=== PATIENT | male | born 1965 | race Caucasian/White ===

== ENCOUNTER 2018-07-21 13:14 | Emergency (ER) | payer BC ==
[2018-07-21 13:32] VITALS: BP 136/101; PULSE 96; TEMP 98.6; BMI 27.1
--- NOTE | 2018-07-21 14:14 | PDOC ---
History of Present Illness - General Chief Complaint: Pain, Acute Stated Complaint: abd pain Time Seen by Provider: 07/21/18 13:51 History Source: Patient - History of Present Illness Timing/Duration: reports: other Quality: reports: severe Pain Radiation: reports: RLQ Past History - Past Medical History Allergies/Adverse Reactions: Allergies Allergy/AdvReac Type Severity Reaction Status Date / Time No Known Allergies Allergy Verified 07/21/18 13:28 Home Medications: Ambulatory Orders Gabapentin [Neurontin] 600 mg PO TID 07/21/18 Oxycodone HCl [Oxycontin] 30 mg PO TID 07/21/18 COPD: No - Immunization History Immunization Up to Date: Yes - Suicide/Smoking/Psychosocial Hx Smoking Status: No Smoking History: Never smoked Number of Cigarettes Smoked Daily: 0 Review of Systems - Review of Systems Constitutional: No: Chills, Fever ABD/GI: Yes: Nausea, Vomiting, Abdominal cramping. No: Diarrhea : Yes: Frequency. No: Dysuria, Discharge, Flank Pain, Testicular Swelling, Testicular Pain Musculoskeletal: No: Back Pain *Physical Exam - Vital Signs Last Vital Signs Temp Pulse Resp BP Pulse Ox 98.6 F 96 H 15 136/101 H 100 07/21/18 13:28 07/21/18 13:28 07/21/18 13:28 07/21/18 13:28 07/21/18 13:28 - Physical Exam General Appearance: Yes: Appropriately Dressed. No: Apparent Distress HEENT: positive: Normal Voice Neck: positive: Supple Respiratory/Chest: negative: Respiratory Distress Gastrointestinal/Abdominal: positive: Tender (to RLQ w/ guarding) Musculoskeletal: negative: CVA Tenderness Integumentary: positive: Dry, Warm Neurologic: positive: Fully Oriented, Alert, Normal Mood/Affect Moderate Sedation - Procedure Monitoring Vital Signs: Procedure Monitoring Vital Signs Temperature 98.6 F 07/21/18 13:28 Pulse Rate 96 H 07/21/18 13:28 Respiratory Rate 15 07/21/18 13:28 Blood Pressure 136/101 H 07/21/18 13:28 O2 Sat by Pulse Oximetry (%) 100 07/21/18 13:28 ED Treatment Course - LABORATORY CBC & Chemistry Diagram: 07/21/18 15:00 07/21/18 15:00 Medical Decision Making - Medical Decision Making 07/21/18 14:13 53 yo F, h/o spinal fusion, ambulates w/ cane, dx w/ shingles to R flank 2017 that was treated, but states RLQ pain near site of prior shingles lesion never resolved and in fact has been getting worse. Had several episodes of nausea/vomiting several days ago that resolved. No fever, chills or change in bowel movements. States he has not gone back to his doctor for follow-up since diagnosed with shingles last year. Patient endorses history of chronic urinary frequency has been worked up in the past with no specific diagnosis per patient. Feels that he is urinating even more freq x 1 week, going about "30 times a day" per pt. No dysuria otherwise See exam R flank shingles 2 months ago w/ persistent pain to site Possible post-herpetic neuralgia vs appy vs renal stone -pain control -labs -CT 07/21/18 16:08 07/21/18 17:[address] unremarkable. Patient discharged in stable condition to follow up with his PMD for further evaluation. Patient reports he has pain medication at home and will take as needed *DC/Admit/Observation/Transfer Diagnosis at time of Disposition: Abdominal pain Qualifiers: Abdominal location: right lower quadrant Qualified Code(s): R10.31 - Right lower quadrant pain - Discharge Dispostion Disposition: HOME Condition at time of disposition: Good - Referrals - Patient Instructions Additional Instructions: Your abdominal pain might represent post-herpetic neuralgia. Take home pain medication as needed. Your labs and CT were unremarkable. Please follow-up with your PMD for further evaluation - Post Discharge Activity
[2018-07-21] MEDS ORDERED: KETOROLAC TROMETHAMINE 30 MG/1 ML VIAL IVPUSH ONE (15:06)
[2018-07-21] MEDS ORDERED: KETOROLAC TROMETHAMINE 30 MG/1 ML VIAL ONE (15:20)
[2018-07-21 15:37] LABS: BASO % 0.6 % (0-2.0); EOS % 0.4 % (0-4.5); HEMATOCRIT 45.5 % (35.4-49); HEMOGLOBIN 15.4 GM/dL (11.7-16.9); LYMPH % 41.5 % (8-40); MCH 28.9 pg (25.7-33.7); MCHC 33.8 g/dl (32.0-35.9); MEAN CELL VOLUME 85.5 fl (80-96); MEAN PLT VOLUME 7.4 fl (7.5-11.1); MONO % 8.4 % (3.8-10.2); NEUT % 49.1 % (42.8-82.8); PLATELET COUNT 322 K/MM3 (134-434); RBC 5.32 M/mm3 (4.00-5.60); RDW 13.8 % (11.9-15.9); WHITE BLOOD COUNT 5.7 K/mm3 (4.0-10.0)
[2018-07-21 15:55] LABS: ALBUMIN 4.7 g/dl (3.4-5.0); ALK PHOS 77 U/L (45-117); ANION GAP 8 MMOL/L (8-16); BILIRUBIN,TOTAL 1.1 mg/dL (0.2-1); BLOOD UREA NITROGEN 16 mg/dL (7-18); CHLORIDE 97 mmol/L (98-107); CO2 32 mmol/L (21-32); CREATININE 1.2 mg/dL (0.55-1.3); GLUCOSE,RANDOM 87 mg/dL (74-106); POTASSIUM 4.6 mmol/L (3.5-5.1); SGOT/AST 19 U/L (15-37); SGPT/ALT 29 U/L (13-61); SODIUM 137 mmol/L (136-145); TOT PROT 8.9 g/dl (6.4-8.2)
[2018-07-21 17:03] LABS: URINE APPEARANCE CLEAR; URINE BILIRUBIN NEGATIVE (<2.0 mg/dL); URINE COLOR LTYELLOW; URINE GLUCOSE (UA) NEGATIVE (NEGATIVE); URINE KETONE NEGATIVE (NEGATIVE); URINE LEUK ESTERASE NEGATIVE (NEGATIVE); URINE NITRITE NEGATIVE (NEGATIVE); URINE PROTEIN NEGATIVE (NEGATIVE); URINE UROBILINOGEN NEGATIVE mg/dL (0.2-1.0)
== END 2018-07-21 18:38 | disposition home or self-care (01) ==
LOC: JER 13:14
PROC: 3E0333Z Introduction of Anti-inflammatory into Peripheral Vein, Percutaneous Approach (ICD-10-PCS; principal; 2018-07-21)
DX: R10.30 Lower abdominal pain, unspecified (principal); Z86.69 Personal history of other diseases of the nervous system and sense organs
CPT/HCPCS: 36415; 74177-TC; 80053; 81003; 85025; 99282-25

== ENCOUNTER 2018-08-17 16:32 | Emergency (ER) | payer BC ==
--- NOTE | 2018-08-17 16:37 | PDOC ---
Rapid Medical Evaluation Chief Complaint: Pain Time Seen by Provider: 08/17/18 16:37 Medical Evaluation: Allergies Allergy/AdvReac Type Severity Reaction Status Date / Time No Known Allergies Allergy Verified 08/17/18 16:37 08/17/18 16:37 I performed a brief in-person evaluation of this patient. Chief complaint: Constipation, small BM Friday. On chronic opiates s/p back surgery. Pertinent physical exam findings: Moderate distention, bowel sounds hypoactive, RLQ tenderness I have ordered the following: Basic labs, AXR. Patient will proceed to the ED for further evaluation. 08/17/18 16:38 Discharge Disposition - Diagnosis Constipation - Referrals - Patient Instructions - Post Discharge Activity
[2018-08-17 16:41] VITALS: TEMP 98.2; BMI 25.8
[2018-08-17 16:58] LABS: BASO % 0.8 % (0-2.0); EOS % 0.4 % (0-4.5); HEMATOCRIT 45.6 % (35.4-49); HEMOGLOBIN 15.7 GM/dL (11.7-16.9); LYMPH % 34.4 % (8-40); MCH 29.6 pg (25.7-33.7); MCHC 34.5 g/dl (32.0-35.9); MEAN CELL VOLUME 85.6 fl (80-96); MEAN PLT VOLUME 7.3 fl (7.5-11.1); MONO % 8.2 % (3.8-10.2); NEUT % 56.2 % (42.8-82.8); PLATELET COUNT 281 K/MM3 (134-434); RBC 5.32 M/mm3 (4.00-5.60); RDW 13.2 % (11.9-15.9); WHITE BLOOD COUNT 5.7 K/mm3 (4.0-10.0)
--- NOTE | 2018-08-17 17:01 | PDOC ---
History of Present Illness - General History Source: Patient <Joe Bond - Last Filed: 08/17/18 17:58> <Brianda Roper - Last Filed: 08/18/18 07:44> - General Chief Complaint: Pain Stated Complaint: ABD PAINS Time Seen by Provider: 08/17/18 16:37 Past History - Past Medical History COPD: No - Immunization History Immunization Up to Date: Yes - Suicide/Smoking/Psychosocial Hx Smoking Status: No Smoking History: Never smoked Number of Cigarettes Smoked Daily: 0 <Joe Bond - Last Filed: 08/17/18 17:58> <Brianda Roper - Last Filed: 08/18/18 07:44> - Past Medical History Allergies/Adverse Reactions: Allergies Allergy/AdvReac Type Severity Reaction Status Date / Time No Known Allergies Allergy Verified 08/17/18 16:37 Home Medications: Ambulatory Orders Gabapentin [Neurontin] 300 mg PO TID 07/21/18 Oxycodone HCl [Oxycontin] 30 mg PO TID 07/21/18 Review of Systems - Review of Systems Constitutional: No: Fever ABD/GI: Yes: Constipated. No: Blood Streaked Bowels, Diarrhea, Nausea, Rectal Bleeding, Vomiting, Abdominal cramping : No: Dysuria <Joe Bond Last Filed: 08/17/18 17:58> *Physical Exam - Vital Signs Last Vital Signs Temp Pulse Resp BP Pulse Ox 98.2 F 115 H 18 136/95 97 08/17/18 16:37 08/17/18 16:37 08/17/18 16:37 08/17/18 16:37 08/17/18 16:37 - Physical Exam General Appearance: Yes: Appropriately Dressed. No: Apparent Distress HEENT: positive: Normal Voice Neck: positive: Supple Respiratory/Chest: negative: Respiratory Distress Gastrointestinal/Abdominal: positive: Soft. negative: Tender Integumentary: positive: Dry, Warm Neurologic: positive: Fully Oriented, Alert, Normal Mood/Affect <Joe Bond Last Filed: 08/17/18 17:58> - Vital Signs Last Vital Signs Temp Pulse Resp BP Pulse Ox 98.2 F 92 H 18 131/94 97 08/17/18 17:53 08/17/18 17:53 08/17/18 17:53 08/17/18 17:53 08/17/18 17:53 <Brianda Roper - Last Filed: 08/18/18 07:44> Moderate Sedation - Procedure Monitoring Vital Signs: Procedure Monitoring Vital Signs Temperature 98.2 F 08/17/18 16:37 Pulse Rate 115 H 08/17/18 16:37 Respiratory Rate 18 08/17/18 16:37 Blood Pressure 136/95 08/17/18 16:37 O2 Sat by Pulse Oximetry (%) 97 08/17/18 16:37 <Joe Bond - Last Filed: 08/17/18 17:58> - Procedure Monitoring Vital Signs: Procedure Monitoring Vital Signs Temperature 98.2 F 08/17/18 17:53 Pulse Rate 92 H 08/17/18 17:53 Respiratory Rate 18 08/17/18 17:53 Blood Pressure 131/94 08/17/18 17:53 O2 Sat by Pulse Oximetry (%) 97 08/17/18 17:53 <Brianda Roper - Last Filed: 08/18/18 07:44> ED Treatment Course - LABORATORY CBC & Chemistry Diagram: 08/17/18 16:50 08/17/18 16:50 <Joe Bond - Last Filed: 08/17/18 17:58> - LABORATORY CBC & Chemistry Diagram: 08/17/18 16:50 08/17/18 16:50 - ADDITIONAL ORDERS Additional order review: 08/17/18 16:50 RBC 5.32 MCV 85.6 MCHC 34.5 RDW 13.2 MPV 7.3 L Neutrophils % 56.2 Lymphocytes % 34.4 Monocytes % 8.2 Eosinophils % 0.4 Basophils % 0.8 <Brianda Roper - Last Filed: 08/18/18 07:44> Medical Decision Making - Medical Decision Making 08/17/18 16:59 53 yo M, h/o chronic LBP, s/p spinal fusion, ambulates w/ cane, on oxycodone, chronic R flank/RLQ pain s/p episode of shingles near site 05/17, currently on famiciclovir though no rash currently, here w/ constipation x 1 week that patient admits is getting better with [id number] medication and Linzess given to him by his doctor. Last bowel movement was last night. No bright blood per rectum, rectal pain, nausea, vomiting, fever or chills. No abd surgery in past. No recent scope See exam Constipation Improved w/ OTC meds and linzess Take oxycodone for chronic back pain Tachy to 115 but well amada w/ benign abd -labs and abd XR ordered from triage 08/17/18 17:44 Labs unremarkable and XR read as no e/o SBO. Will dc to continue bowel regimen at home and f/u with his PMD <Joe Bond - Last Filed: 08/17/18 17:58> *DC/Admit/Observation/Transfer <Joe Bond - Last Filed: 08/17/18 17:58> - Attestations Physician Attestion: I reviewed the case with the mid-level practitioner and agree with the mid- level practitioner's assessment, diagnosis and disposition. <Brianda Roper - Last Filed: 08/18/18 07:44> Diagnosis at time of Disposition: Constipation Qualifiers: Constipation type: unspecified constipation type Qualified Code(s): K59.00 - Constipation, unspecified - Discharge Dispostion Disposition: HOME Condition at time of disposition: Good - Patient Instructions Printed Discharge Instructions: Constipation Additional Instructions: Your labs are normal here and your x-ray showed no sign of obstruction. Please continue your bowel regimen at home and follow up with your PMD
[2018-08-17 17:20] LABS: ALBUMIN 4.3 g/dl (3.4-5.0); ALK PHOS 73 U/L (45-117); ANION GAP 7 MMOL/L (8-16); BILIRUBIN,TOTAL 0.6 mg/dL (0.2-1); BLOOD UREA NITROGEN 14 mg/dL (7-18); CALCIUM 9.4 mg/dL (8.5-10.1); CHLORIDE 100 mmol/L (98-107); CO2 31 mmol/L (21-32); CREATININE 1.2 mg/dL (0.55-1.3); GLUCOSE,RANDOM 105 mg/dL (74-106); POTASSIUM 4.6 mmol/L (3.5-5.1); SGOT/AST 13 U/L (15-37); SGPT/ALT 34 U/L (13-61); SODIUM 138 mmol/L (136-145); TOT PROT 8.2 g/dl (6.4-8.2)
[2018-08-17 17:27] LABS: URINE APPEARANCE CLEAR; URINE BILIRUBIN NEGATIVE (<2.0 mg/dL); URINE COLOR YELLOW; URINE GLUCOSE (UA) NEGATIVE (NEGATIVE); URINE KETONE NEGATIVE (NEGATIVE); URINE LEUK ESTERASE NEGATIVE (NEGATIVE); URINE NITRITE NEGATIVE (NEGATIVE); URINE PROTEIN NEGATIVE (NEGATIVE); URINE UROBILINOGEN NEGATIVE mg/dL (0.2-1.0)
[2018-08-17 17:54] VITALS: BP 131/94; PULSE 92
== END 2018-08-17 17:55 | disposition home or self-care (01) ==
LOC: JER 16:32
DX: K59.03 Drug induced constipation (principal); T40.2X5A Adverse effect of other opioids, initial encounter; Y92.018 Other place in single-family (private) house as the place of occurrence of the external cause; M54.5 Low back pain; G89.29 Other chronic pain
CPT/HCPCS: 36415; 74019-TC-FY; 80053; 81003; 85025; 99281-25

== ENCOUNTER 2021-07-13 15:31 | Emergency (ER) | payer BC ==
[2021-07-13 15:58] VITALS: BP 149/84; PULSE 74; TEMP 98.1; BMI 24.2
[2021-07-13] MEDS ORDERED: SODIUM CHLORIDE 0.9% 500 ML INFUS.BAG IV ONE (17:35)
[2021-07-13] MEDS ORDERED: KETOROLAC TROMETHAMINE 15 MG/ML VIAL IVPUSH ONE (17:38)
[2021-07-13] MEDS ORDERED: KETOROLAC TROMETHAMINE 15 MG/ML VIAL ONE (18:09)
[2021-07-13 18:10] LABS: BASO % 0.7 % (0-2.0); EOS % 0.4 % (0-4.5); HEMATOCRIT 44.4 % (35.4-49); HEMOGLOBIN 15.2 GM/dL (11.7-16.9); LYMPH % 37.5 % (8-40); MCHC 34.2 g/dl (32.0-35.9); MEAN CELL VOLUME 84.9 fl (80-96); MEAN PLT VOLUME 7.2 fl (7.5-11.1); MONO % 9.7 % (3.8-10.2); NEUT % 51.7 % (42.8-82.8); PLATELET COUNT 321 10^3/uL (134-434); RBC 5.23 M/mm3 (4.00-5.60)
[2021-07-13 18:38] LABS: CALCIUM 9.8 mg/dL (8.5-10.1)
[2021-07-13 18:39] LABS: ALBUMIN 4.2 g/dl (3.4-5.0); BLOOD UREA NITROGEN 22.9 mg/dL (7-18)
[2021-07-13 18:41] LABS: CREATININE 1.4 mg/dL (0.55-1.3)
[2021-07-13 18:43] LABS: BILIRUBIN,TOTAL 0.5 mg/dL (0.2-1); TOT PROT 8.1 g/dl (6.4-8.2)
[2021-07-13] MEDS ORDERED: morphine CARPU-JECT 4 MG/1 ML DISP.SYRIN IVPUSH ONE (19:02)
[2021-07-13] MEDS ORDERED: morphine SULFATE 4 MG/ML VIAL ONE (19:28)
== END 2021-07-13 22:32 | disposition home or self-care (01) ==
LOC: JER 15:31
PROC: 3E033NZ Introduction of Analgesics, Hypnotics, Sedatives into Peripheral Vein, Percutaneous Approach (ICD-10-PCS; principal; 2021-07-13)
PROC: 3E033GC Introduction of Other Therapeutic Substance into Peripheral Vein, Percutaneous Approach (ICD-10-PCS; 2021-07-13)
DX: R10.9 Unspecified abdominal pain (principal)
CPT/HCPCS: 36415; 74177-TC; 80053; 83690; 85025; 99285-25; Q9967

== ENCOUNTER 2022-05-02 16:16 | Inpatient (IN) | payer BC ==
[2022-05-02] MEDS ORDERED: SODIUM CHLORIDE 0.9% 500 ML INFUS.BAG IV ONE (17:56)
[2022-05-02] MEDS ORDERED: morphine SULFATE 4 MG/ML VIAL IVPUSH ONE (17:56)
[2022-05-02] MEDS ORDERED: morphine SULFATE 4 MG/ML VIAL ONE (18:34)
[2022-05-02 19:02] LABS: BASO % 0.4 % (0-2.0); EOS % 0.4 % (0-4.5); HEMATOCRIT 45.1 % (35.4-49); HEMOGLOBIN 15.6 GM/dL (11.7-16.9); LYMPH % 26.7 % (8-40); MCH 30.3 pg (25.7-33.7); MCHC 34.5 g/dl (32.0-35.9); MEAN CELL VOLUME 87.9 fl (80-96); MEAN PLT VOLUME 7.4 fl (7.5-11.1); MONO % 8.2 % (3.8-10.2); NEUT % 64.3 % (42.8-82.8); PLATELET COUNT 275 10^3/uL (134-434); RBC 5.13 M/mm3 (4.00-5.60); WHITE BLOOD COUNT 7.3 K/mm3 (4.0-10.0)
[2022-05-02 19:09] LABS: INR 1.05 (0.83-1.09); PROTHROMBIN TIME (PATIENT) 12.1 SEC (9.7-13.0)
[2022-05-02 19:12] LABS: ACTIVATED PTT 27.1 SECONDS (25.2-36.5)
[2022-05-02 19:13] LABS: ALBUMIN 4.2 g/dl (3.4-5.0); BLOOD UREA NITROGEN 18.8 mg/dL (7-18); CALCIUM 9.8 mg/dL (8.5-10.1)
[2022-05-02 19:17] LABS: BILIRUBIN,TOTAL 0.5 mg/dL (0.2-1); CREATININE 1.1 mg/dL (0.55-1.3); TOT PROT 7.7 g/dl (6.4-8.2)
[2022-05-02] MEDS ORDERED: PIPERACILLIN/TAZOB 3.375 GM 3.375 GM in DEXTROSE 5%-WATER - 50 ML IVPB ONE (21:59)
[2022-05-02] MEDS ORDERED: FAMOTIDINE 20 MG/50 ML IVPB 20 MG/50 ML MG IVPB ONE ×2 (22:22→22:43)
[2022-05-02] MEDS ORDERED: MAG HYDROX/AL HYDROX/SIMETH -MYLANTA- ORAL SUSPENSION PO ONE (22:22)
[2022-05-02] MEDS ORDERED: PIPERACILLIN/TAZOB 3.375 GM 3.375 GM/50 ML BAG IVPB ONE (22:30)
[2022-05-02] MEDS ORDERED: FAMOTIDINE 20 MG TABLET ONE (22:30)
[2022-05-02] MEDS ORDERED: MAG HYDROX/AL HYDROX/SIMETH 30 ML UNIT-DOSE CUP ONE (22:30)
[2022-05-02] MEDS ORDERED: DOCUSATE SODIUM 100 MG CAPSULE (FP) PO PRN (23:10)
[2022-05-02] MEDS ORDERED: ACETAMINOPHEN 1000 MG/100 ML BAG IVPB PRN (23:14)
[2022-05-02] MEDS ORDERED: ONDANSETRON 4 MG/2 ML VIAL IVPUSH PRN (23:15)
[2022-05-03 02:47] VITALS: BMI 23.9
[2022-05-03] MEDS ORDERED: PIPERACILLIN/TAZOB 3.375 GM 3.375 GM/50 ML BAG IVPB SCH (08:00)
[2022-05-03] MEDS ORDERED: WATER IVPB SCH (09:16)
[2022-05-03] MEDS ORDERED: DEXTROSE 5% IVPB SCH (09:16)
[2022-05-03] MEDS ORDERED: TAZOB IVPB SCH (09:16)
[2022-05-03] MEDS ORDERED: PIPERACILLIN IVPB SCH (09:16)
[2022-05-03] MEDS ORDERED: PIPERACILLIN/TAZOB 3.375 GM 3.375 GM in DEXTROSE 5%-WATER - 50 ML IVPB SCH (09:29)
[2022-05-03] MEDS: ENOXAPARIN NA (PORCINE) 40 MG/0.4 ML DISP.SYRIN SQ SCH ×2 (10:02→10:24)
[2022-05-03] MEDS: PANTOPRAZOLE 20 MG TABLET PO SCH (10:02)
[2022-05-03 11:39] LABS: BASO % 0.6 % (0-2.0); EOS % 0.2 % (0-4.5); HEMATOCRIT 42.6 % (35.4-49); HEMOGLOBIN 14.4 GM/dL (11.7-16.9); LYMPH % 19.3 % (8-40); MCH 29.7 pg (25.7-33.7); MCHC 33.8 g/dl (32.0-35.9); MEAN CELL VOLUME 87.8 fl (80-96); MEAN PLT VOLUME 8.1 fl (7.5-11.1); MONO % 9.1 % (3.8-10.2); NEUT % 70.8 % (42.8-82.8); PLATELET COUNT 243 10^3/uL (134-434); RBC 4.86 M/mm3 (4.00-5.60); RDW 12.8 % (11.9-15.9); WHITE BLOOD COUNT 6.5 K/mm3 (4.0-10.0)
[2022-05-03 11:56] LABS: CALCIUM 8.8 mg/dL (8.5-10.1)
[2022-05-03 11:57] LABS: BLOOD UREA NITROGEN 14.5 mg/dL (7-18); MAGNESIUM 2.3 mg/dL (1.8-2.4)
[2022-05-03 12:01] LABS: PHOSPHOROUS 3.1 mg/dL (2.5-4.9)
[2022-05-03] MEDS ORDERED: POTASSIUM CHLORIDE 10 MEQ in SODIUM CHLORIDE 0.45% 1,000 ML IVPB SCH (17:00)
[2022-05-03] MEDS: PIPERACILLIN/TAZOB 3.375 GM 3.375 GM in DEXTROSE 5%-WATER - 50 ML IVPB SCH (18:01)
[2022-05-03 19:41] LABS: PH,URINE 5.5 (5.0-8.0); URINE APPEARANCE Error; URINE BILIRUBIN NEGATIVE (NEGATIVE); URINE COLOR YELLOW; URINE GLUCOSE (UA) NEGATIVE (NEGATIVE); URINE KETONE NEGATIVE (NEGATIVE); URINE LEUK ESTERASE NEGATIVE (NEGATIVE); URINE NITRITE NEGATIVE (NEGATIVE); URINE PROTEIN NEGATIVE (NEGATIVE); URINE UROBILINOGEN 0.2 mg/dL (0.2-1.0)
[2022-05-03] MEDS ORDERED: ACETAMINOPHEN 325 MG TABLET (FP) PO PRN (23:10)
[2022-05-04] MEDS: PIPERACILLIN/TAZOB 3.375 GM 3.375 GM in DEXTROSE 5%-WATER - 50 ML IVPB SCH ×3 (02:08→18:29)
[2022-05-04] MEDS: diazePAM 5 MG TABLET PO PRN ×3 (03:36→20:31)
[2022-05-04] MEDS: ENOXAPARIN NA (PORCINE) 40 MG/0.4 ML DISP.SYRIN SQ SCH (10:33)
[2022-05-04] MEDS: PANTOPRAZOLE 20 MG TABLET PO SCH (10:33)
[2022-05-04 10:36] LABS: HEMATOCRIT 42.7 % (35.4-49); HEMOGLOBIN 14.5 GM/dL (11.7-16.9); MCH 29.9 pg (25.7-33.7); MCHC 33.9 g/dl (32.0-35.9); MEAN CELL VOLUME 88.1 fl (80-96); MEAN PLT VOLUME 7.9 fl (7.5-11.1); PLATELET COUNT 254 10^3/uL (134-434); RBC 4.85 M/mm3 (4.00-5.60); RDW 12.7 % (11.9-15.9); WHITE BLOOD COUNT 5.9 K/mm3 (4.0-10.0)
[2022-05-04 11:00] LABS: CALCIUM 9.9 mg/dL (8.5-10.1)
[2022-05-04 11:01] LABS: ALBUMIN 3.8 g/dl (3.4-5.0)
[2022-05-04 11:04] LABS: CREATININE 1.2 mg/dL (0.55-1.3)
[2022-05-04 11:06] LABS: TOT PROT 6.9 g/dl (6.4-8.2)
[2022-05-05] MEDS: PIPERACILLIN/TAZOB 3.375 GM 3.375 GM in DEXTROSE 5%-WATER - 50 ML IVPB SCH ×3 (01:11→09:18)
[2022-05-05] MEDS: diazePAM 5 MG TABLET PO PRN ×2 (01:11→13:18)
[2022-05-05] MEDS: PANTOPRAZOLE 20 MG TABLET PO SCH (09:18)
[2022-05-05] MEDS: ENOXAPARIN NA (PORCINE) 40 MG/0.4 ML DISP.SYRIN SQ SCH (09:19)
[2022-05-05 15:43] VITALS: BP 104/68; PULSE 83; RESP 18; TEMP 98.3
== END 2022-05-05 16:31 | disposition home or self-care (01) | DRG 392 ==
LOC: JER 16:16 → JERBED 22:01 → J5S 05-03 02:54
PROVIDERS: ADMIT Internal Medicine; ATTEND Family Medicine
DX: K57.92 Diverticulitis of intestine, part unspecified, without perforation or abscess without bleeding (principal); E86.0 Dehydration; Z72.89 Other problems related to lifestyle; R10.31 Right lower quadrant pain
CPT/HCPCS: 36415; 74177-TC; 80048; 80053; 81003; 82272; 83605; 83735; 84100; 85025; 85027; 85610; 85730; 93005; 93010; 99285-25; C9803-CS; Q9967; U0003; U0005

== ENCOUNTER 2023-01-10 17:05 | Emergency (ER) | payer BC ==
[2023-01-10 17:28] VITALS: BP 143/82; PULSE 96; RESP 20; TEMP 99; BMI 22.2
== END 2023-01-10 18:13 | disposition home or self-care (01) ==
LOC: FER 17:05
DX: M54.50 Low back pain, unspecified (principal); R10.9 Unspecified abdominal pain; G89.29 Other chronic pain
CPT/HCPCS: 99283-25

== ENCOUNTER 2024-01-08 14:54 | Emergency (ER) | payer BC ==
[2024-01-08 15:10] VITALS: BP 168/88; PULSE 82; RESP 18; TEMP 98.8; BMI 25.8
[2024-01-08] MEDS ORDERED: ONDANSETRON 4 MG/2 ML VIAL ONE (15:58)
[2024-01-08] MEDS: SODIUM CHLORIDE 0.9% 500 ML INFUS.BAG IV ONE (16:07)
[2024-01-08] MEDS: ONDANSETRON 4 MG/2 ML VIAL IVPUSH ONE (16:08)
[2024-01-08 16:16] LABS: BASO % 0.4 % (0-2.0); EOS % 0.1 % (0-4.5); HEMATOCRIT 43.4 % (35.4-49); HEMOGLOBIN 14.9 GM/dL (11.7-16.9); MCH 29.9 pg (25.7-33.7); MCHC 34.2 g/dl (32.0-35.9); MEAN CELL VOLUME 87.5 fl (80-96); MONO % 5.4 % (3.8-10.2); NEUT % 83.1 % (42.8-82.8); PLATELET COUNT 328 10^3/uL (134-434); RBC 4.96 M/mm3 (4.00-5.60); WHITE BLOOD COUNT 7.5 K/mm3 (4.0-10.0)
[2024-01-08] MEDS ORDERED: MORPHINE SULFATE 2 MG/ML SYRINGE ONE ×2 (16:38→17:05)
[2024-01-08 16:39] LABS: POTASSIUM 4.3 mmol/L (3.5-5.1)
[2024-01-08 16:40] LABS: CALCIUM 10.8 mg/dL (8.5-10.1)
[2024-01-08 16:42] LABS: ALBUMIN 4.3 g/dl (3.4-5.0); BLOOD UREA NITROGEN 11.1 mg/dL (7-18)
[2024-01-08] MEDS: morphine CARPU-JECT 2 MG/1 ML DISP.SYRIN IVPUSH ONE ×2 (16:42→17:08)
[2024-01-08 16:44] LABS: CREATININE 0.9 mg/dL (0.55-1.3)
[2024-01-08 16:46] LABS: BILIRUBIN,TOTAL 0.6 mg/dL (0.2-1); TOT PROT 8.1 g/dl (6.4-8.2)
[2024-01-08] MEDS ORDERED: ACETAMINOPHEN INJECTION 100 ML IVPB ONE (18:21)
[2024-01-08] MEDS: ACETAMINOPHEN 1000 MG/100 ML BAG IVPB ONE (18:24)
[2024-01-08] MEDS ORDERED: metroNIDAZOLE 250 MG TABLET ONE (21:10)
[2024-01-08] MEDS: metroNIDAZOLE 250 MG TABLET PO ONE (21:11)
== END 2024-01-08 21:11 | disposition home or self-care (01) ==
LOC: JER 14:54
PROC: 3E033NZ Introduction of Analgesics, Hypnotics, Sedatives into Peripheral Vein, Percutaneous Approach (ICD-10-PCS; principal; 2024-01-08)
PROC: 3E033NZ Introduction of Analgesics, Hypnotics, Sedatives into Peripheral Vein, Percutaneous Approach (ICD-10-PCS; 2024-01-08)
PROC: 3E033NZ Introduction of Analgesics, Hypnotics, Sedatives into Peripheral Vein, Percutaneous Approach (ICD-10-PCS; 2024-01-08)
PROC: 3E033GC Introduction of Other Therapeutic Substance into Peripheral Vein, Percutaneous Approach (ICD-10-PCS; 2024-01-08)
DX: K52.9 Noninfective gastroenteritis and colitis, unspecified (principal); R11.2 Nausea with vomiting, unspecified; R10.33 Periumbilical pain
CPT/HCPCS: 36415; 74177-TC; 80053; 82962; 83690; 85025; 99285-25; J0131

== ENCOUNTER 2024-03-03 14:35 | Emergency (ER) | payer BC ==
[2024-03-03 14:43] VITALS: BP 137/72; PULSE 101; RESP 18; TEMP 98.1; BMI 23.7
[2024-03-03 16:23] LABS: BASO % 0.5 % (0-2.0); EOS % 2.5 % (0-4.5); MCH 29.9 pg (25.7-33.7); MCHC 34.1 g/dl (32.0-35.9); MEAN CELL VOLUME 87.9 fl (80-96); MONO % 10.8 % (3.8-10.2); NEUT % 46.2 % (42.8-82.8); PLATELET COUNT 266 10^3/uL (134-434); RDW 13.3 % (11.9-15.9); WHITE BLOOD COUNT 4.6 K/mm3 (4.0-10.0)
[2024-03-03 16:42] LABS: POTASSIUM 3.9 mmol/L (3.5-5.1)
[2024-03-03 16:44] LABS: ALBUMIN 4.1 g/dl (3.4-5.0); CALCIUM 9.8 mg/dL (8.5-10.1)
[2024-03-03 16:45] LABS: BLOOD UREA NITROGEN 18.4 mg/dL (7-18)
[2024-03-03 16:47] LABS: CREATININE 1.2 mg/dL (0.55-1.3)
[2024-03-03 16:49] LABS: BILIRUBIN,TOTAL 0.7 mg/dL (0.2-1); TOT PROT 7.6 g/dl (6.4-8.2)
[2024-03-03] MEDS ORDERED: ACETAMINOPHEN 500 MG TABLET (FP) PO ONE (16:56)
[2024-03-03] MEDS ORDERED: KETOROLAC TROMETHAMINE 30 MG/1 ML VIAL IM ONE (16:56)
[2024-03-03] MEDS ORDERED: KETOROLAC TROMETHAMINE 30 MG/1 ML VIAL ONE (17:23)
[2024-03-03] MEDS ORDERED: ACETAMINOPHEN INJECTION 100 ML ONE (17:23)
[2024-03-03] MEDS: ACETAMINOPHEN 1000 MG/100 ML BAG IVPB ONE (17:28)
[2024-03-03] MEDS: KETOROLAC TROMETHAMINE 30 MG/1 ML VIAL IVPUSH ONE (17:29)
[2024-03-03 20:35] LABS: HIV INTERPRETATION NEGATIVE (NEGATIVE)
== END 2024-03-03 18:54 | disposition home or self-care (01) ==
LOC: JER 14:35
PROC: 3E033NZ Introduction of Analgesics, Hypnotics, Sedatives into Peripheral Vein, Percutaneous Approach (ICD-10-PCS; principal; 2024-03-03)
PROC: 3E0333Z Introduction of Anti-inflammatory into Peripheral Vein, Percutaneous Approach (ICD-10-PCS; 2024-03-03)
DX: R10.31 Right lower quadrant pain (principal); G89.29 Other chronic pain
CPT/HCPCS: 36415; 80053; 83690; 85025; 86803; 87389; 99284-25; J0131

== ENCOUNTER 2024-03-16 15:11 | Emergency (ER) | payer BC ==
[2024-03-16 15:16] VITALS: TEMP 98.8; BMI 23.8
[2024-03-16] MEDS ORDERED: morphine SULFATE 4 MG/ML VIAL ONE (17:27)
[2024-03-16 17:30] LABS: BASO % 0.5 % (0-2.0); EOS % 1.8 % (0-4.5); HEMOGLOBIN 15.1 GM/dL (11.7-16.9); LYMPH % 36.7 % (8-40); MCH 30.3 pg (25.7-33.7); MCHC 34.3 g/dl (32.0-35.9); MEAN CELL VOLUME 88.1 fl (80-96); PLATELET COUNT 268 10^3/uL (134-434); RDW 13.7 % (11.9-15.9); WHITE BLOOD COUNT 3.8 K/mm3 (4.0-10.0)
[2024-03-16 17:48] LABS: POTASSIUM 4.9 mmol/L (3.5-5.1)
[2024-03-16] MEDS: morphine CARPU-JECT 4 MG/1 ML DISP.SYRIN IVPUSH ONE (17:49)
[2024-03-16 17:51] LABS: ALBUMIN 3.6 g/dl (3.4-5.0); BLOOD UREA NITROGEN 15.9 mg/dL (7-18); CALCIUM 9.4 mg/dL (8.5-10.1)
[2024-03-16 17:54] LABS: CREATININE 1.1 mg/dL (0.55-1.3)
[2024-03-16] MEDS: SODIUM CHLORIDE 0.9% 500 ML INFUS.BAG IV ONE (17:55)
[2024-03-16 17:56] LABS: BILIRUBIN,TOTAL 0.4 mg/dL (0.2-1); TOT PROT 7.6 g/dl (6.4-8.2)
[2024-03-16 18:18] VITALS: BP 135/89; PULSE 93; RESP 16
[2024-03-16 20:32] LABS: PH,URINE 6.5 (5.0-8.0); URINE APPEARANCE CLEAR; URINE BILIRUBIN NEGATIVE (NEGATIVE); URINE COLOR YELLOW; URINE GLUCOSE (UA) NEGATIVE (NEGATIVE); URINE KETONE NEGATIVE (NEGATIVE); URINE LEUK ESTERASE NEGATIVE (NEGATIVE); URINE NITRITE NEGATIVE (NEGATIVE); URINE PROTEIN NEGATIVE (NEGATIVE); URINE UROBILINOGEN 0.2 mg/dL (0.2-1.0)
== END 2024-03-16 21:02 | disposition home or self-care (01) ==
LOC: JER 15:11
PROC: 3E033NZ Introduction of Analgesics, Hypnotics, Sedatives into Peripheral Vein, Percutaneous Approach (ICD-10-PCS; principal; 2024-03-16)
DX: K57.30 Diverticulosis of large intestine without perforation or abscess without bleeding (principal)
CPT/HCPCS: 36415; 74177-TC; 80053; 81003; 83690; 85025; 99285-25; Q9967